=== PATIENT | male | born 2005 | race Caucasian/White ===

== ENCOUNTER 2025-10-31 08:14 | Outpatient (REF) | payer OTHER, SELFPAY ==
--- NOTE | ~2025-10-31 | US_ITS ---
EXAMINATION: US SCROTUM HISTORY: PERSISTENT RIGHT SCROTAL PAIN. COMPARISON: There are no prior studies available for comparison. FINDINGS: Real-time grayscale ultrasound imaging of the scrotum was performed. RIGHT TESTICLE: The right testis measures 4.5 x 2.0 x 2.9 cm and demonstrates normal homogeneous echotexture. No masses are seen. The right testis demonstrates normal color Doppler flow. RIGHT EPIDIDYMIS: Normal in size, shape, and vascularity. LEFT TESTICLE: The left testis measures 4.4 x 2.2 x 2.8 cm and demonstrates normal homogeneous echotexture. No masses are seen. The left testis demonstrates normal color Doppler flow. LEFT EPIDIDYMIS: Normal in size, shape, and vascularity. VARICOCELE: None. HYDROCELE: No significant hydrocele is seen. OTHER COMMENTS: None. US/US scrotum IMPRESSION: Unremarkable scrotal ultrasound. Electronically signed by: Americo Quispe MD 10/31/2025 03:13 PM [facility]
--- OUTSIDE RECORDS SUMMARY | 2025-10-31 08:30 | XMS_ITS | Clinical Summary ---
Author Organization [facility] spital Address [address] [place] [address] Phone Care Team Providers Care Quarter Folder Name Role Phone Maude Dewitt MD Primary Care Provider Maude Dewitt MD Unavailable [phone] Maude Dewitt MD Unavailable Gael Urbina MD Unavailable Unavailable Allergies Active Allergy Reactions Criticality Noted Date Comments Tree Nuts 01/16/2021 Reaction Type from PowerChart: Allergy; Active Problems Problem Noted Date Diagnosed Date Pilonidal disease 04/12/2021 Social History Tobacco Use Types Packs/Day Years Used Date Smoking Tobacco: Never Assessed Sex and Gender Information Value Date Recorded Sex Assigned at Not on file Legal Sex Male 6:03 PM EDT Gender Identity Not on file Sexual Orientation Not on file Last Filed Vital Signs Vital Sign Reading Time Taken Comments Blood Pressure - - Pulse - - Temperature 36.5 C (97.7 F) 04/29/2024 3:10 PM EDT Respiratory Rate - - Oxygen Saturation - - Inhaled Oxygen Concentration - - Weight 62.5 kg (137 lb 12.6 oz) 04/29/2024 3:10 PM EDT Height 168.5 cm (5' 6.34 ) 04/29/2024 3:10 PM ED T Body Mass Index 22.01 04/29/2024 3:10 PM EDT Plan of Treatment Health Maintenance Due Date Last Done Comments Chlamydia and Gonorrhea Screening 2005 HIV Screening 2005 Hepatitis C Screening 2023 COVID-19 Vaccine ( season) 2025 11/19/2022, 11/10/2021, 04/23/2021, Additional history exists Influenza Vaccine (#1) 2025 , 08/19/2022, 08/21/2021, Additional history exists DTaP/Tdap/Td Vaccines (7 - Td or Tdap) 2027 2017, 07/10/2010, 08/06/2006, Additional history exists Hepatitis B Vaccines Completed 2005, 2005, 2005 Pneumococcal Vaccine: Pediatrics (0 to 5 Years) and At-Risk Patients (6 to 49 Years) Aged Out 05/10/2006, 2005, 2005, Additional history exists No longer eligible based on patient's age to complete this topic HIB Vaccines Completed 08/06/2006, 03/2006, 2005, Additional history exists Hepatitis A Vaccines Completed 05/10/2007, 10/26/20 06 IPV Vaccines Completed 07/10/2010, 03/2006, 2005, Additional history exists MMR Vaccines Completed 07/10/2010, 08/06/2006 Varicella Vaccines Completed 07/10/2010, 08/06/2006 HPV Vaccines Completed 05/20/2019, 05/14/2018 Meningococcal Vaccine Completed 06/04/2021, 017 Meningococcal B Vaccine Completed 06/15/2023, 06/09 Rotavirus Vaccines Aged Out No longer eligible based on patient's age to complete this topic Insurance [facility] Care Teams Quarter Folder Relationship Specialty Start Date End Date Maude Dewitt MD [address] [place] [address] PCP - General 04/02/24 Maude Dewitt MD [address] [place] [address] PCP - Insurance Identified PCP 04/04/24 Maude Dewitt MD [address] [place] [address] PCP - Insurance PCP 02/02/24 Gael Urbina MD PCP - Clinical PCP 08/27/21
--- OUTSIDE RECORDS SUMMARY | 2025-10-31 08:30 | XMS_ITS | Patient Health Record ---
Author Organization [facility] Address [address] [place] [id number] Care Team Providers Care Cotton Seed Culler Name Role Phone Maude Dewitt MD Primary Care Provider Unavail able DASHAWN CORTEZ Unavailable [phone] Allergies Allergen (clinical drug ingredient) Drug/Non Drug Allergy documented on EMR Reaction Allergy Type Onset Date Status Tree Nuts Unknown Allergy Active Reason For Referral No Information Medications Medication SIG (Take, Route, Fr equency, Duration) Notes Start Date End Date Status EpiPen 2-Pramod 0.3 MG/0.3ML as directed intramuscularly once; Duration: 30 days Active Social History Tobacco Use: Social History Observation Description Date Details (start date - stop date) Never Smoker NA - NA Smoking: Question Answer Notes Are you a: never smoker Not exposed to s econd-hand cigarette smoke Problems Problem Type SNOMED Code ICD Code Onset Dates Problem Status W/U Status Risk Notes Problem Chronic rhinitis (09533380) Chronic rhinitis (J31.0) Active confirmed Problem Food allergy (590644983) Allergy to other foods (Z91.018) Active confirmed Vital Signs Height 66 in 04/05/2025 Weight 135 lbs 04/05/2025 BMI 21.79 kg/m2 04/05/2025 Encounters Encounter Location Date Provider Diagnosis [facility] [address] [phone] 04/05/2025 DASHAWN CORTEZ Allergy to other foods Z91.018 and Chronic rhinitis J31.0 Assessments Encounter Date Diagnosis (ICD Code) Assessment Notes Treatment Notes Treatment Clinical Notes Section Notes 04/05/2025 Allergy to other foods (ICD-10 - Z91.018) Grabiel prefers to avoid all tree nuts at this point 04/05/2025 Chronic rhinitis (ICD-10 - J31.0) He can try switching to Xyzal and Nasacort AQ Plan Of Treatment Pending Test Test Name Order Date CASHEW NUT (F202) IGE 11/17/2018 CASHEW NUT (F202) IGE 11/23/2019 CASHEW NUT (F202) IGE 11/27/2021 CASHEW NUT (F202) IGE 01/07/2023 CASHEW NUT (F202) IGE 11/19/2016 CASHEW NUT (F202) IGE 11/22/2014 PISTACHIO (F203) IGE 11/19/2016 PISTACHIO (F203) IGE 11/22/2014 PISTACHIO (F203) IGE 01/07/2023 PISTACHIO (F203) IGE 11/27/2021 PISTACHIO (F203) IGE 11/23/2019 PISTACHIO (F203) IGE 11/17/2018 HAZELNUT (F17) IGE 11/17/2018 HAZELNUT (F17) IGE 11/23/2019 HAZELNUT (F17) IGE 11/27/2021 HAZELNUT (F17) IGE 01/07/2023 HAZELNUT (F17) IGE 11/22/2014 HAZELNUT (F17) IGE 11/19/2016 BRAZIL NUT (F18) IGE 11/22/2014 BRAZIL NUT (F18) IGE 01/07/2023 BRAZIL NUT (F18) IGE 11/19/2016 BRAZIL NUT (F18) IGE 11/23/2019 BRAZIL NUT (F18) IGE 11/17/2018 ALMOND (F20) IGE 11/23/2019 ALMOND (F20) IGE 11/17/2018 ALMOND (F20) IGE 01/07/2023 ALMOND (F20) IGE 11/22/2014 ALMOND (F20) IGE 11/19/2016 COCONUT (F36) IGE 11/22/2014 PECAN NUT (F201) IGE 11/22/2014 PECAN NUT (F201) IGE 11/19/2016 PECAN NUT (F201) IGE 11/23/2019 PECAN NUT (F201) IGE 01/07/2023 PECAN NUT (F201) IGE 11/17/2018 WALNUT (F256) IGE 11/17/2018 WALNUT (F256) IGE 11/23/2019 WALNUT (F256) IGE 01/07/2023 WALNUT (F256) IGE 11/19/2016 WALNUT (F256) IGE 11/22/2014 WALNUT /REFLEX COMPONENT 11/17/2018 Hazelnut f17 IgE w/Reflex to Component p taiwo 11/17/2018 CASHEW NUT COMPONENT 11/27/2021 HAZELNUT COMPONENT PANEL 11/27/2021 WALNUT COMPONENT PANEL 01/07/2023 WALNUT COMPONENT PANEL 11/23/2019 HAZELNUT COMPONENT PANEL 11/23/2019 HAZELNUT COMPONENT PANEL 01/07/2023 Next Appt Details Provider Name:DASHAWNPHILIP LUBINPRITI, 04/04/2026 03:00:00 PM, [address] [place] [address], [phone], Insurance Providers Payer Name Payer Address Payer Phone Subscriber Number Group Number Insured Name Patient Relationship to Insured Coverage Start Date Coverage End Date [facility] [employer] [address] [address] [place] [address] [id number] Grabiel Krishnan Self - patient is the insured [facility] [address] [address] [place] [address] [id number] Grabiel Krishnan Self - patient is the insured Medical (General) History Medical History History ICD Code Allergy to other foods Z91.018 Surgical History Surgery Date(Month/Year) circumcision , revised 2006 Hospitalization History Reason Date(Month/Year) Hospitalization after trying pistachio n uts 11/2011
--- OUTSIDE RECORDS SUMMARY | 2025-10-31 08:30 | XMS_ITS | Clinical Summary ---
Author Organization [facility] Address [address] [place] [address] Phone Care Team Providers Care Cancer Program Director Name Role Phone Maude Dewitt MD Primary Care Provider [phone] Allergies Active Allergy Reactions Criticality Noted Date Comments Amoxicillin Rash Low 09/19/2024 ? Allergy, taking azithromycin at same time Cephalexin 06/26/2023 Tree Nuts (Food) Anaphylaxis High 10/29/2018 Cashews and Pistachios and hazelnut Medications EPINEPHrine 0.3 MG/0.3ML injection syringe EPIPEN 2 PACK; Active Active Ventolin HFA 108 (90 Base) MCG/ACT inhalerIndicat ions:Acute cough Inhale 2 puffs every 4 (four) hours as needed for wheezing or shortness of breath. 18 Unspecified 1 Active Additional Information Patient not taking.Reported on 06/16/2025 Active Problems Problem Noted Date Diagnosed Date Acute cough 03/31/2025 Vitreous floaters of right eye 03/31/2025 Overview (06/27/2025): Seen at [facility] March 2025, recommended annual follow up, no concerns identified Assessment & Plan (03/31/2025 12:10 PM EDT): Referred to ophthalmology, list provided Juvenile idiopathic scoliosis of thoracolumbar r egion 01/29/2021 Overview (01/29/2021): Seen by ortho 01/06, 6 mo f/u. Assessment & Plan (06/16/2025 3:03 PM EDT): [facility] for scoliosis, 33 degree L lumbar scoliosis as of 04/2024 - no routine follow up required anymore as skeletally mature. Minimal back pain. Assessment & Plan (06/16/2024 1:53 PM EDT): [facility] ortho for scoliosis, 33 degree L lumbar scoliosis as of 04/2024 - no routine follow up required anymore as skeletally mature. Minimal back pain. Assessment & Plan (06/15/2023 2:37 PM EDT): F/u summer 2022 Assessment & Plan (06/09/2022 8:04 PM EDT): Mom says Dr. Robison felt he did not need to see Grabiel for 2-3 years, and that his Scoliosis is stable. Pectus excavatum 02/08/2019 Assessment & Plan (06/15/2023 6:35 PM EDT): F/u with ortho Food allergy 04/28/2016 Overview (06/15/2023): Allergic cashews and pistachios Assessment & Plan (06/16/2025 3:03 PM EDT): Continue good avoidance cashews and pistachios. He wonders if hazelnut allergy as well. Had allergy challenge to hazelnut with reaction. Cross contamination doesn't cause concerns. Carries epipen daily. Follows with Dr. Yanes Assessment & Plan (06/16/2024 1:54 PM EDT): Continue good avoidance. He wonders if hazelnut allergy as well. Had allergy challenge to hazelnut with reaction. Cross contamination doesn't cause concerns. Carries epipen daily. Assessment & Plan (06/15/2023 6:35 PM EDT): Continue good avoidance, cont carry epi Assessment & Plan (06/09/2022 8:05 PM EDT): Grabiel will continue to avoid tree nuts that he is still allergic to. We did review the use of his Epinephrine injector. Resolved Problems Problem Noted Date Diagnosed Date Resolved Date Loose stools 06/15/2023 06/16/2024 Overview (06/15/2023): C/O stool leaking when he stands after he voids. Denies abd pain, denies constipation. Stools daily, soft logs. Good appetite, no weight loss. Mother has unspecified colitis Assessment & Plan (06/15/2023 6:44 PM EDT): Will check stools and blood work. If persists refer to GI Pilonidal disease 06/09/2022 06/15/2023 Pilonidal disease 04/12/2021 06/16/2024 First degree AV block 01/15/20212022 Overview (01/15/2021): Borderline 0.22 ms, measured by EKG done 02/03. Dry skin dermatitis 12/03/2020 06/15/20 23 Assessment & Plan (12/03/2020 10:29 AM EST): Advised to avoid irritants, moisturize 2-3x/day, aquafor or ceravie, use sock or glove qhs . Try .5% HC 1-2x day x 2d Call if not improvwed 5-7d Immunizations Immunization Administration Dates Next Due DTaP 5 07/10/2010, 6,2005,09/05,2005 HPV Vaccine 9 Valent 05/20/2019,05/14/2018 Hep A, ped/adol 05/10/2007,10/26/2006 Hep B, ped/adol 2005,2005,2005 Hib (PRP-T) 08/06/2006, 6,2005,07/24 IPV 07/10/2010, 6,2005,07/24 Influenza, injectable, quadr ivalent, preservative free 10/02/2023,08/19/2022,08/21/2021,08/22,08/16/2019,08/21/2018 Influenza, injectable, trivalent 013,08/14/2012,07/11/2011,09/14 Influenza, injectable, triva lent, preservative free 09/02/2025,08/22/2017,08/09/2016 Influenza, intranasal, quadrivalent 08/26/2014 MMR 07/10/2010,08/06/2006 Meningococcal B Trumenba 06/15/2023,06/09/2022 Meningococcal Conj (Menactra) MCV4P 06/04/2021,0 2017 Pneumococcal Conjugate 05/10/2006,2005,2005,07/24 Tdap 2017 Varicella 07/10/2010,08/06/2006 Family History Medical History Relation Name Comments Asperger's syndrome Brother half Food allergies Father Diabetes Maternal Grandfather Heart disease (Premature) Maternal Grandfather Hyperlipidemia Maternal Grandfather Hypertension Maternal Grandfather Kidney disease Maternal Grandfather Melanoma Maternal Grandfather Nephrolithiasis Maternal Grandfather Hyperlipidemia Maternal Grandmother Hypertension Maternal Grandmother No Known Problems Mother Stroke Neg Hx Relation Name Status Comments Brother half Father Maternal Grandfather Maternal Grandmother Mother Social History Tobacco Use Types Packs/Day Years Used Date Smoking Tobacco: Never Smokeless Tobacco: Never Alcohol Use Standard Drinks/Week Comments Never 0 (1 standard drink = 0.6 oz pur e alcohol) Hunger/Food Answer Date Recorded In the last 12 months, did y ou or your family ever eat less than you felt you should because there wasn't enough money for food? No 06/16/2025 Stable Housing Answer Date Recorded Are you worried that in the next 2 months you may not have stable housing? No 06/16/2025 Transportation Concerns Answer Date Rec orded In the last 12 months, have you or your family ever had to go without healthcare because you didn't have a way to get there? No 06/16/2025 Hazards in Home Answer Date Recorded Think about the place you li ve. Do you have problems with any of the following? Pests (mice or roaches), mold, no/not working smoke detectors, water leaks, no window guards. No 2024 Financing Utilities Answer Date Recorde d In the last 12 months, has t he electric, gas, oil, or water company threatened to shut off your services in your home? No 06/16/2025 Safety at Home Answer Date Recorded Are you or your family worried about feeling saf e in your home? No 06/16/2025 Outside Support Answer Date Recorded Do you feel that you need mo re support from other people or programs to help you care for yourself or your family? No 06/16/2025 Understanding Health Concerns Answer Da te Recorded Do you need help understandi ng your or your child's healthcare needs (diagnosis, medications, plan, etc.)? No 06/16/2025 Financing Health Concerns Answer Date R ecorded In the last 12 months, was t here a time when your child needed to see a doctor or get medications or supplies but could not because of cost? No 06/16/2025 Missing School or Work Answer Date Olegario rded Did you or your child miss s chool or work because of a health problem that could have been avoided? No 06/16/2025 Child Education Answer Date Recorded Do you have concerns about y our/your child's learning or behavior in school, preschool, or daycare? No 06/16/2025 Sex and Gender Information Value Date Recorded Sex Assigned at Not on file Legal Sex Male 3:03 PM EST Gender Identity Male 04/25/2024 10:56 AM EDT Sexual Orientation Straight 06/04/2021 4: 11 PM EDT Last Filed Vital Signs Vital Sign Reading Time Taken Comments Blood Pressure 116/66 06/16/2025 3:01 PM EDT Pulse 72 06/16/2025 3:01 PM EDT Temperature 36.9 C (98.4 F) 07/03/2025 3:43 PM EDT Respiratory Rate - - Oxygen Saturation 97% 03/31/2025 10:59 AM EDT Inhaled Oxygen Concentration - - Weight 62.1 kg (137 lb) 07/03/2025 3:43 PM EDT Height 167.6 cm (5' 6 ) 06/16/2025 3:01 PM EDT Body Mass Index 22.11 06/16/2025 3:01 PM EDT Plan of Treatment Upcoming Encounters Date Type Department Care Team (Late st Contact Info) Description 06/12/2026 3:00 PM EDT Office Visit [facility] [address] [place] [address] Maude Dewitt MD [address] [place] [address] Health Maintenance Due Date Last Done Comments DTaP,Tdap,and Td Vaccines (7 - Td or Tdap) 2027 2017, 07/10/2010, 08/06/2006, Additional history exists Hepatitis B Vaccines Completed 2005, 2005, 2005 Pneumococcal Vaccine Completed 05/10/2006, 2005, 2005, Additional history exists HIB Vaccines Completed 08/06/2006, 03/2006, 2005, Additional history exists Hepatitis A Vaccines Completed 05/10/2007, 10/26/20 06 IPV Vaccines Completed 07/10/2010, 03/2006, 2005, Additional history exists MMR Vaccines Completed 07/10/2010, 08/06/2006 Varicella Vaccines Completed 07/10/2010, 08/06/2006 HPV Vaccines Completed 05/20/2019, 05/14/2018 Meningococcal Vaccine Completed 06/04/2021, 017 Men B Vaccine Completed 06/15/2023, 06/09/2022 HIV Screening Completed 07/05/2025 Hepatitis C Screening Completed 07/05/2025 COVID-19 Vaccine Completed 09/02/2025, 02/2023, 11/10/2021, Additional history exists Influenza Vaccines Completed 09/02/2025, 1 12/02/2022, 08/19/2022, Additional history exists Procedures * Due to [place] state law, this organization might not be sharing sensitive test results. Procedure Name Priority Date/Time Associated Diagnosis Comments HIV-1 AND HIV-2 ANTIBODIES & ANTIGEN WITH REFLEXES Routine 07/05/2025 8:09 AM EDT Routine screening for STI (sexually transmitted infection) HEPATITIS C ANTIBODY WITH REFLEX TO HCV, RNA, QUANT, RT PCR Routine 07/05/2025 8:09 AM EDT Routine screening for STI (sexually transmitted infection) from Last 3 Months or Most Recently Relevant to Health Maintenance Results * Due to [place] state law, this organization might not be sharing sensitive test results. * HIV-1/2 Antigen and Antibodies, Fourth Generation, with Reflexes (07/05/2025 8:09 AM EDT) Blood (Blood) Maude Dewitt MD LAB BLOOD ORDERABLES Final Res ult Performing Organization Address [facility] Co de Phone Number [facility] * Hepatitis C antibody (07/05/2025 8:09 AM EDT) Blood Maude Dewitt MD LAB BLOOD ORDERABLES Final Res ult Performing Organization Address [facility]/ZIP Co de Phone Number [facility] from Last 3 Months or Most Recently Relevant to Health Maintenance Insurance [facility] Care Teams Cancer Program Director Relationship Specialty Start Date End Date Maude Dewitt MD [address] [place] [address] PCP - General Pediatrics 06/10/23
--- OUTSIDE RECORDS SUMMARY | 2025-10-31 08:30 | XMS_ITS | Encounter Summary ---
Author Organization [facility] Address [address] [place] [address] Phone Care Team Providers Care Proposal Consultant Name Role Phone Maude Dewitt MD Primary Care Provider [phone] Encounter Details Date Type Department Care Team (Late st Contact Info) Description 01/14/2018 Conversion Encounter [facility] [address] [place] [address] Elias Manrique MD Social History Tobacco Use Types Packs/Day Years Used Date Smoking Tobacco: Never Assessed Sex and Gender Information Value Date Recorded Sex Assigned at Not on file Legal Sex Male 3:03 PM EST Gender Identity Male 04/25/2024 10:56 AM EDT Sexual Orientation Straight 06/04/2021 4: 11 PM EDT documented as of this encounter Plan of Treatment Upcoming Encounters Date Type Department Care Team (Late st Contact Info) Description 06/12/2026 3:00 PM EDT Office Visit [facility] [address] [place] [address] Maude Dewitt MD [address] [place] [address] documented as of this encounter Visit Diagnoses Not on filedocumented in this encounter Care Teams Proposal Consultant Relationship Specialty Start Date End Date Maude Dewitt MD [address] [place] [address] PCP - General Pediatrics 06/10/23 documented as of this encounter
== END 2025-10-31 08:15 | disposition home or self-care (01) ==
LOC: HO.UMASIMG 08:14
PROVIDERS: Visit Provider Physician Assistant
DX: N50.82 Scrotal pain (principal)
CPT/HCPCS: 76870

== ENCOUNTER → 2025-10-31 14:30 | Outpatient (BNV) | payer OTHER, SELFPAY | PROVIDERS: Visit Provider Radiology Diagnostic Radiology | DX: N50.811 Right testicular pain (principal) | CPT/HCPCS: 76870 ==